=== PATIENT | female | born 1950 ===

== ENCOUNTER 2019-12-19 10:44 | Outpatient (CLI) | payer MEDICARE, OTHER | END 2019-12-19 23:59 | disposition home or self-care (01) | LOC: CFH 10:44 → MERGE 10:44 → EDBD 11:15 → CFH 23:59 | PROVIDERS: ATTEND Internal Medicine Cardiovascular Disease | DX: I36.1 Nonrheumatic tricuspid (valve) insufficiency (principal); I10 Essential (primary) hypertension; E78.5 Hyperlipidemia, unspecified; I27.9 Pulmonary heart disease, unspecified | CPT/HCPCS: 93306 ==